=== PATIENT | male | born 1970 | race Caucasian/White ===

== ENCOUNTER 2020-06-01 02:46 | Outpatient (CLI) | payer OTHER, SELFPAY ==
[2020-06-02 13:48] LABS: SARS-CoV-2 RNA PCR Negative
== END 2020-06-01 02:47 | disposition home or self-care (01) ==
LOC: ANHCOVIDDT 02:46
PROVIDERS: PCP Family Medicine; Visit Provider Internal Medicine Gastroenterology
DX: Z01.812 Encounter for preprocedural laboratory examination (principal); Z11.59 Encounter for screening for other viral diseases
CPT/HCPCS: 87635; C9803; U0003

== ENCOUNTER 2020-06-04 01:03 | Day surgery (SDC) | payer OTHER, SELFPAY ==
[2020-05-28 09:23] VITALS: BMI 41.8
[2020-06-04 07:58] VITALS: BP 129/71; PULSE 66; RESP 20; TEMP 36.4; O2SAT 98
[2020-06-04] MEDS: LACTATED RINGERS 1,000 ML 150 ML IV CONT (08:09)
--- NOTE | 2020-06-04 08:35 | WPDANESEPPF ---
Anes - Initial Pre Proc Eval Procedure: Operation Date: 06/04/20 09:00 Proposed Procedures p Screening Colonoscopy - Isaac Wallace MD Date/Time: 06/04/20 08:35 Surgeon: Isaac Wallace MD Pre Op Diagnosis: neoplasm screening Patient Data Age: 49 Gender: M Height: 5 ft 8 in Weight: 123.5 kg Last Vital Signs Temp 97.5 F L 06/04/20 07:58 Pulse 66 06/04/20 07:58 Resp 20 06/04/20 07:58 BP 129/71 06/04/20 07:58 Pulse Ox 98 06/04/20 07:58 Allergies Allergy/AdvReac Type Severity Reaction Status Date / Time amoxicillin Allergy Intermediate Rash Verified 06/04/20 07:57 Home Medications Medication Instructions Recorded Confirmed Type No Home Medications 05/28/20 06/04/20 History Patient hx anesthesia problems: none Family hx anesthesia problems: none PMFSH Past Medical History Medical History (Updated 06/04/20 @ 08:35 by Jean-Paul John MD) Leukemia in remission no treatment at present Family History Family History (Updated 05/03/19 @ 13:48 by DOCTOR UNKNOWN) Father Diabetes mellitus Grandparent Family history of cardiovascular disease Family history of Alzheimer's disease Social History Social History Smoking status: Never smoker Gender identity (if verbalized by the patient): Male Sexual Orientation (if Verbalized by the Patient): Straight or Heterosexual Anes - Eval Final PreProcedure Day of Procedure 06/04/20 08:35 Patient weight: morbidly obese Heart: regular rate and rhythm Lungs: clear to auscultation Airway: Mallampati scale class II Neurological: alert and oriented Last oral intake: >/= 8 hours ASA classification: III Emergent: no Anesthetic plan: proceed Anesthesia type and monitoring: general GIVS and standard monitoring Informed Consent: The patient's anesthetic plan and its attendant risks and benefits were discussed with the patient/family/POA. Questions were solicited and answers provided to the satisfaction of the patient/family/POA.
--- NOTE | 2020-06-04 08:36 | WPDGICN ---
Assessment and Plan Assessment and plan (1) Colonoscopy planned: Status: Acute Assessment and Plan: Patient at average risk for colon polyps. Plan is for screening colonoscopy today. High-fiber diet advised. Further recommendations will be given after endoscopy. (2) Leukemia in remission: Code(s): C95.91 - Leukemia, unspecified, in remission Status: Acute Assessment and Plan: Patient has a history of CLL in remission. GI Consult Note Consult date/time: 06/04/20 08:36 HPI: Triston Schmidt is a 49 year old male Seen in evaluation at the request of Dr. Humza Simeon. patient presents for screening colonoscopy. His current weight appetite bowel movements are normal. He denies abdominal pain he has had no bleeding. His weight appetite bowel movements are normal. Family history noncontributory no known history of colon or rectal disease within the family. Past medical history of CLL currently felt to be stable on medications. Review of Systems Review of Systems: All systems reviewed & are unremarkable except as noted in HPI and below PMFSH Past Medical History Medical History Leukemia in remission no treatment at present Family History Family History Father Diabetes mellitus Grandparent Family history of cardiovascular disease Family history of Alzheimer's disease Social History Social History Smoking status: Never smoker Gender identity (if verbalized by the patient): Male Sexual Orientation (if Verbalized by the Patient): Straight or Heterosexual Meds Home Medications and Allergies Home Medications Medication Instructions Recorded Confirmed Type No Home Medications 05/28/20 06/04/20 History Allergies Allergy/AdvReac Type Severity Reaction Status Date / Time amoxicillin Allergy Intermediate Rash Verified 06/04/20 07:57 Vital Signs Vital Signs - 24 hr 06/04/20 07:58 Temperature 97.5 F L Pulse Rate 66 Respiratory Rate 20 Blood Pressure 129/71 Pulse Oximetry 98 Exam Narrative: Exam Narrative: Physical exam reveals patient to be alert. Vital signs stable. HEENT exam unremarkable. Lungs are clear to auscultation and percussion. Heart is without murmur or extra sounds. Abdominal exam bowel sounds are present soft nontender with no organomegaly. Digital external rectal exam normal.
[2020-06-04 09:35] VITALS: BP 108/62; PULSE 73; RESP 23; O2SAT 99
[2020-06-04 09:45] VITALS: BP 113/56; PULSE 63; RESP 29; O2SAT 98
[2020-06-04 09:55] VITALS: BP 115/72; PULSE 59; RESP 26; O2SAT 98
== END 2020-06-04 10:10 | disposition home or self-care (01) ==
PROVIDERS: PCP Family Medicine; Visit Provider Internal Medicine Gastroenterology
PROC: 0DJD8ZZ Inspection of Lower Intestinal Tract, Via Natural or Artificial Opening Endoscopic (ICD-10-PCS; CPT 45378; principal; 2020-06-04 09:00)
DX: Z12.11 Encounter for screening for malignant neoplasm of colon (principal); C95.91 Leukemia, unspecified, in remission; D17.5 Benign lipomatous neoplasm of intra-abdominal organs; K64.8 Other hemorrhoids; E66.01 Morbid (severe) obesity due to excess calories; Z68.41 Body mass index [BMI] 40.0-44.9, adult
CPT/HCPCS: 45378; 87635; C9803; J2704; J7120; U0003

== ENCOUNTER 2020-06-12 10:15 | Outpatient (CLI) | payer OTHER, SELFPAY ==
--- NOTE | 2020-06-16 09:28 | SLEEP_ITS ---
Home Sleep Test DATE OF STUDY: 06/12/2020 ORDERING PHYSICIAN: Dr. Humza Simeon. REASON FOR THIS STUDY: Hypersomnia, nonrestorative sleep. HISTORY: This patient is a 49-year-old male, 5 feet 3 inches tall, weighing 275 pounds with a body mass index of 48.6. He wakes up often while sleeping. He has difficulty falling asleep and he wakes up throughout the night. When he awakens in the morning, he is not refreshed. He frequently awakens from sleep feeling short of breath. He does not awaken from sleep with heartburn, belching, or coughing. He frequently snores and it is frequently loud enough that others complain about it. He occasionally has trouble sleeping if he has a cold. He occasionally wakes up gasping for breath at night. He frequently has breathing problems at night observed by others. He rarely sweats excessively at night. He does not notice his heart pounding or beating irregularly at night, does not fall asleep during the day, involuntarily or while driving. He does not fall asleep with physical effort. He does not have loss of muscle tone with strong emotion. He occasionally has daytime difficulties due to excessive sleepiness. 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 He does not have paralysis on waking or falling asleep. He occasionally has vivid dreamlike scenes upon awakening or falling asleep. He is never afraid to go to sleep and does not have nightmares. He occasionally remembers his dreams. He occasionally has racing thoughts, feelings of sadness, depression, and anxiety. He rarely has muscular tension. He does not notice parts of his body jerking at night and he does not kick at night. He occasionally has crawly achy feelings in his legs and experiences leg pain at night only rarely. He does not have morning jaw pain. He rarely grinds his teeth at night. He occasionally is bothered by pain during the day. He rarely is awakened by pain during the night, rarely feels stiff in the morning with sore achy muscles or pain in his neck and spine. Normal bedtime is 11 p.m., falling asleep within 5 minutes, waking often, sometimes just for a few seconds, but sometimes he must wake up and go to the bathroom. He may stay awake for 30 minutes. He wakes in the morning at 6 o'clock. On weekends, he goes to bed at midnight and wakes at 9:30 a.m. On the weekends, he does get recovery sleep 9-10 hours. He does not take naps in general. A short nap may be refreshing. Most of the time he feels adequate in the morning, but he feels better in the evening than other times of day. MEDICAL COMORBIDITIES: 1. Chronic lymphocytic leukemia, B-cell type. No treatment currently. 2. Erectile dysfunction. MEDICATIONS: Sildenafil citrate 100 mg p.r.n. sexual activity. HABITS: Never smoked tobacco. Caffeine, 2 L or more of soda daily. Alcohol, 1 beverage 4-5 days per week. No recreational drugs. DESCRIPTION OF THE STUDY: On the [place] Sleepiness Scale, the score is 8. This was conducted as an unattended type 3 portable home sleep test using 4 channel monitoring with respiratory effort channel, snoring channel, oxygen saturation channel, and heart rate channel. This study was scored using [facility] guidelines. Apnea-hypopnea index is 72. Oxygen desaturation index is 70. Average saturation is 88%. Lowest saturation 72%. There were 120 apneas and 98% of these, 118 apneas were obstructive, 1 apnea was unclassified and 1 apnea was central. He had 380 hypopneas. He had 1990 snoring events and desaturated 492 times. He spent 208 minutes below 88%, 49% of the study. Heart rate ranged from 51 to 97, normal. IMPRESSION: 1. This home sleep test shows evidence of extremely severe obstructive sleep apnea syndrome at G47.33 with an AHI of 72, si
== END 2020-06-12 10:16 | disposition home or self-care (01) ==
LOC: ANHCSM 10:15
PROVIDERS: PCP Family Medicine; Visit Provider Family Medicine
DX: G47.33 Obstructive sleep apnea (adult) (pediatric) (principal)
CPT/HCPCS: 95806

== ENCOUNTER 2025-06-01 19:11 | Emergency (ER) | payer OTHER, SELFPAY ==
--- NOTE | 2025-06-01 19:18 | ED_ITS ---
HPI - Ear Problem General Chief complaint: Ear Stated complaint: Ears Irritation Time Seen by Provider: 06/01/25 19:18 Source: patient Mode of arrival: ambulatory Limitations: no limitations History of Present Illness HPI Narrative: Patient is a 54-year-old male presents with left ear pain for 2 days. Reports he now has swelling and blisters on the top of left ear. Patient has PCP appointment tomorrow but was unable to wait due to pain. No fevers or chills MD Complaint: ear pain Related Data Allergies Allergy/AdvReac Type Severity Reaction Status Date / Time amoxicillin Allergy Intermediate Rash Verified 06/01/25 19:26 Penicillins Allergy Mild rash Verified 06/01/25 19:26 Review of Systems Review of Systems: All systems reviewed & are unremarkable except as noted in HPI and below Constitutional: Constitutional: Denies body ache(s), Denies chills, Denies fever(s), Denies headache(s) and Denies malaise Eyes: Eyes: Denies blurry vision, Denies eye discharge and Denies irritation ENT: Reports otalgia, Denies headache(s), Denies nasal congestion, Denies nasal discharge and Denies sore throat Cardiovascular: Cardiovascular: Denies chest pain, Denies edema, Denies palpitations and Denies dyspnea on exertion Respiratory: Respiratory: Denies cough and Denies dyspnea on exertion Gastrointestinal: Gastrointestinal: Denies abdominal pain, Denies diarrhea, Denies nausea and Denies vomiting Musculoskeletal: Musculoskeletal: Denies back pain, Denies arthralgias and Denies muscle weakness Integumentary/Breasts: Skin/Breast: Denies pruritus and Denies rash Neurologic: Denies headache(s) Psychiatric: Psychiatric: Reports no additional psychiatric complaints Endocrine: Endocrine: Denies palpitations PMFSH Past Medical History Medical History Elevated blood pressure reading without diagnosis of hypertension Abnormal fasting glucose Dyslipidemia Morbid obesity Obstructive sleep apnea (adult) (pediatric) Abnormal liver function tests Chronic lymphocytic leukemia of B-cell type in remission Family History Family History Father Diabetes mellitus Cerebrovascular accident Grandparent Family history of cardiovascular disease Family history of Alzheimer's disease Social History Social History Social History: 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 Smoking status: Never smoker Alcohol intake: current Substance use: never Substance use type: does not use Current Housing: Decline to Answer Concerned About Future Housing: Decline to Answer Difficulty Paying Gas/Electric Bills: Decline to Answer Difficulty Paying for Meds: Decline to Answer Currently Unemployed: Decline to Answer Education: Decline to Answer Difficulty w/ Childcare or Family Care: Decline to Answer Living arrangements: with family Gender identity (if verbalized by the patient): Male Sexual Orientation (if Verbalized by the Patient): Straight or Heterosexual Comments At time of signature, agree with nursing past medical, surgical, social and family history. There is no relevant family history pertinent to the presenting complaint? Exam Const: General: cooperative, healthy appearing, no acute distress and well nourished Nutritional Appearance: well nourished Orientation/consciousness: patient oriented x3 Limitations: no limitations HENMT: Head: normal to inspection, normocephalic and atraumatic Ears: hearing grossly normal bilaterally, TM's normal bilaterally, no periauricular adenopathy, Abnormal EAC present edema on the left and otic discharge purulent on the left and external ear abnormal (edema) auricular tenderness on the left and pain with movement of external ear on the left Face/Nose/Sinus: Normal external nose present, Normal nares present, Normal nasal mucous membranes and turbinates present, No nasal discharge present, normal facial exam and sinuses nontender Face and sinus: normal facial exam and sinuses nontender Mouth: Yes Normal oral and palatal mucosa present, Yes lip normal, Yes tongue normal an d Yes moist mucous membranes Throat: posterior oropharynx normal, tonsils normal and uvula midline Eyes: General: appearance normal, both eyes and all related structures Alignment and Position: alignment normal and position normal Eyelids: eyelids normal Pupils: Equal, round and reactive pupils present EOM: EOMs intact bilaterally Neck: Neck: normal visual inspection, full ROM, no lymphadenopathy and supple Chest: Chest palpation & inspection: normal inspection of the chest Resp: Effort & Inspection: normal respiratory effort and able to speak in complete sentences Auscultation: clear to auscultation bilaterally, no crackles, no rales, no rhonchi and no wheezes Cardio: Rate: regular rate Rhythm: regular rhythm Heart sounds: S1 normal heart sound present and S2 normal heart sound present Skin: General skin exam: normal color and no rashes or lesions noted Neuro: General: patient oriented x3 and moves all extremities Cranial nerves: Yes Equal, round and reactive pupils present Cognition (Neuro): normal cognition Speech: normal speech Gait exam (Neuro): Normal gait present Extrem: General: normal to inspection and full ROM Psych: Appearance: grossly normal and well kempt Mental Status: mental status grossly normal Speech and movement: Normal speech and movement present Course Course Emergency Course: Patient is aware of diagnosis, understands and agrees to treatment plan.? Anticipatory guidance given.? Patient agrees to follow-up as directed and is aware of reasons to seek care at the emergency department.? Portions of this record may have been created with voice recognition software? Level of Care: Express Care Visit Vital Signs Vital signs: Reviewed Medical Decision Making MDM Narrative Medical decision making narrative: As infection has extended past the ear canal on to external ear will treat with oral antibiotics versus antibiotic ear drops Pt well hydrated appearing, in no respiratory distress, hemodynamically stable. Recommend supportive care. The patient is stable at time of discharge the clinical impression was discussed and the patient was given the opportunity to ask questions, which were addressed as completely as possible given the information available at present. Anticipatory guidance and return to care precautions were discussed and the importance of primary care follow-up was stressed and encouraged. The patient voiced understanding of the plan, indications to return, and the need for follow-up. Exam findings show no acute concerns or changes Patient is appropriate for outpatient treatment and follow-up. Differential diagnosis considered: otitis media, otitis externa, otitis effus ion, foreign body, cerumen impaction, viral syndrome Medical Records Medical records reviewed: Yes I reviewed the external patient's medical records. Discharge Plan Discharge Clinical Impression: Otitis externa Qualifiers: Otitis externa type: unspecified type Chronicity: acute Laterality: right Qualified Code(s): H60.501 - Unspecified acute noninfective otitis externa, right ear Patient Disposition: Home Condition: Stable Instructions: Swimmer's Ear (GEN) Additional Instructions: Take antibiotics as directed. Recommend antihistamine such as Benadryl at night time and Zyrtec or Yisel during the day until symptoms improve Flonase nasal spray, 1 spray in each nostril once daily until symptoms improve Also, recommend symptomatic treatment includes: rest, fluids, and increase humidity of the air at home. Recommend Acetaminophen as directed on the bottle to reduce fever, pain Please schedule a follow-up visit with your personal physician for further evaluation and treatment within 3-5days. If your symptoms persist, change or worsen significantly before you can contact your personal physician then please, without delay, go to the emergency department for further evaluation. Your blood pressure was elevated above 120/80 today at Urgent Care. This puts you above the threshold for follow up visit with a primary care provider. High blood pressure does not usually cause any symptoms, however it may lead to kidney failure, stroke, heart disease just to name a few if untreated . Many people are anxious when seeing a provider or nurse. As a result, you are not diagnosed with hypertension at this time unless your blood pressure is persistently high at two office visits at least one week apart. Some things that can help lower blood pressure are lifestyle modifications, such as light exercise, decreased salt in diet, and weight loss. It is important to follow up with a PCP about this within 1 week. Patient Language: Yi Prescriptions: New ciprofloxacin HCl 500 mg tablet 500 mg PO Q12H 7 Days Qty: 14 0RF Follow-up/Referrals: Humza Simeon MD [Primary Care Provider] - 3 Days Time of Disposition: 19:29
[2025-06-01 19:20] VITALS: BP 147/61; PULSE 59; RESP 16; TEMP 36.6; O2SAT 97
== END 2025-06-01 19:34 | disposition home or self-care (01) ==
PROVIDERS: Emergency Provider Nurse Practitioner Family; PCP Family Medicine
DX: H60.501 Unspecified acute noninfective otitis externa, right ear (principal); E78.5 Hyperlipidemia, unspecified; E66.01 Morbid (severe) obesity due to excess calories; Z68.41 Body mass index [BMI] 40.0-44.9, adult; C91.11 Chronic lymphocytic leukemia of B-cell type in remission
CPT/HCPCS: 99213; G0463

== ENCOUNTER 2025-09-09 13:36 | Emergency (ER) | payer OTHER, SELFPAY ==
[2025-09-09 13:42] VITALS: BP 132/56; PULSE 67; RESP 16; TEMP 36.8; O2SAT 96
--- NOTE | 2025-09-09 14:03 | ED.URI ---
HPI - URI/Sore Throat General Chief Complaint: Upper Respiratory Infection Stated Complaint: left ear pain/cough Patient presents the Express Care with complaints nasal congestion, headaches, pain and drainage from left ear that began over the last few days. Patient notes occasional ear infections in the left ear only, noted he was treated just a few months ago in this office for a infection. Denies fever, chills, body aches, dizziness, sore throat, nausea, vomiting, diarrhea. Related Data Allergies Allergy/AdvReac Type Severity Reaction Status Date / Time amoxicillin Allergy Intermediate Rash Verified 09/09/25 13:39 Penicillins Allergy Mild rash Verified 09/09/25 13:39 Review of Systems Constitutional: Constitutional: Reports as per HPI, Denies chills, Denies fatigue, Denies fever(s) and Denies weakness Eyes: Eyes: Reports no additional eye complaints ENT: Reports as per HPI, Denies vertigo, Denies dizziness, Reports nasal congestion and Denies sore throat Comments: Left ear pain with drainage Cardiovascular: Cardiovascular: Reports no additional cardiovascular complaints Respiratory: Respiratory: Reports as per HPI, Denies chest congestion, Denies cough, Denies dyspnea and Denies wheezing Gastrointestinal: Gastrointestinal: Reports no additional gastrointestinal complaints Genitourinary: Genitourinary: Reports no additional male genitourinary complaints Musculoskeletal: Musculoskeletal: Reports no additional musculoskeletal complaints Integumentary/Breasts: Skin/Breast: Reports as per HPI, Denies erythema and Denies rash Neurologic: Reports as per HPI, Denies vertigo, Denies dizziness, Reports headache(s) and Denies weakness Psychiatric: Psychiatric: Reports no additional psychiatric complaints Endocrine: Endocrine: Reports no additional endocrine complaints Hematologic/Lymphatic: Hematologic/Lymphatic: Reports no additional hematologic/lymphatic complaints Allergic/Immunologic: Allergic/Immunologic: Reports no additional allergic/immunologic complaints [facility] Past Medical History Medical History Elevated blood pressure reading without diagnosis of hypertension Abnormal fasting glucose Dyslipidemia Morbid obesity Obstructive sleep apnea (adult) (pediatric) Abnormal liver function tests Chronic lymphocytic leukemia of B-cell type in remission Family History Family History Father Diabetes mellitus Cerebrovascular accident Grandparent Family history of cardiovascular disease Family history of Alzheimer's disease Social History Social History Social History: 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 Smoking status: Never smoker Alcohol intake: current Substance use: never Substance use type: does not use Current Housing: Decline to Answer Concerned About Future Housing: Decline to Answer Difficulty Paying Gas/Electric Bills: Decline to Answer Difficulty Paying for Meds: Decline to Answer Currently Unemployed: Decline to Answer Education: Decline to Answer Difficulty w/ Childcare or Family Care: Decline to Answer Living arrangements: with family Gender identity (if verbalized by the patient): Male Sexual Orientation (if Verbalized by the Patient): Straight or Heterosexual Exam Const: General: healthy appearing and no acute distress Nutritional Appearance: well nourished Orientation/consciousness: patient oriented x3 Limitations: no limitations HENMT: Head: normal to inspection Ears: external ears normal and TM's abnormal bilaterally Face/Nose/Sinus: Normal external nose present and Normal nares present Face and sinus: normal facial exam and sinuses nontender Mouth: Yes Normal oral and palatal mucosa present, Yes lip normal and Yes moist mucous membranes Throat: posterior oropharynx normal Other: right TM dullness no erythema or fluid noted. left TM retracted with significant dullness, erythema, loss of bony landmarks, and minimal rupture at 4 o'clock. Neck: Neck: normal visual inspection and no lymphadenopathy Resp: Effort & Inspection: normal respiratory effort Auscultation: clear to auscultation bilaterally Cardio: Rate: regular rate Rhythm: regular rhythm Skin: General skin exam: normal color Rashes: no rashes Wounds: no wounds Neuro: General: patient oriented x3 Speech: normal speech Gait exam (Neuro): Normal gait present Psych: Mental Status: mental status grossly normal Affect: normal affect Attitude: cooperative Course Course Level of Care: Express Care Visit Vital Signs Vital signs: Vital Signs Temperature 98.2 F 09/09/25 13:42 Pulse Rate 67 09/09/25 13:42 Respiratory Rate 16 09/09/25 13:42 Blood Pressure 132/56 L 09/09/25 13:42 Pulse Oximetry 96 09/09/25 13:42 Oxygen Delivery Room Air 09/09/25 13:42 Temperature 98.2 F 09/09/25 13:42 Pulse Rate 67 09/09/25 13:42 Respiratory Rate 16 09/09/25 13:42 Blood Pressure 132/56 L 09/09/25 13:42 Pulse Oximetry 96 09/09/25 13:42 Oxygen Delivery Room Air 09/09/25 13:42 MDM - URI/Sore Throat MDM Narrative Medical decision making narrative: AOM with rupture noted The patient was evaluated by myself in the express care. History is obtained from patient who is an independent historian and physical exam was performed. Available medical records were reviewed at this time. Exam findings show no acute concerns or changes; patient is non-toxic appearing and is in no distress. Patient is appropriate for outpatient treatment and follow-up. I have evaluated and discussed social determinants of health with the patient that could potentially impact subsequent diagnosis and treatment plans. Differential diagnosis and treatment plan were discussed with the patient. Patient agrees with discussion and after shared medical decision making agrees with plan of care. All questions were answered to the patient's satisfaction. Differential Diagnosis Differential diagnosis: Likely upper respiratory infection, croup, otitis media, sinusitis, bronchitis, influenza and pharyngitis Medical Records Attestation: I reviewed the patient's medical records. Discharge Plan Discharge Clinical Impression: Left otitis media with spontaneous rupture of eardrum Patient Disposition: Home Condition: Stable Instructions: Antibiotic Form, Ruptured Eardrum (ED), Ear Infection (GEN) Additional Instructions: take the antibiotics until gone. May use probiotics or yogurt daily to help with upset stomach /diarrhea with antibiotic use. May use Tylenol and ibuprofen to help with pain or fever. May use warm compresses to the outside of the ear to help with pain. Can also use Sudafed and Flonase nasal spray to help with symptoms associated with ear infection and help the ears drain. Follow-up with primary care physician if symptoms not improving or worsen. Patient Language: Mosotho Prescriptions: New azithromycin 250 mg tablet See Rx Instructions .ROUTE .COMPLEX Qty: 6 0RF Rx Instructions: For 250 mg dose pack: take 500 mg today (day 1), then 250 mg for 4 days (days 2-5) ofloxacin 0.3 % drops 10 drp LEFT EAR DAILY 7 Days Qty: 10 0RF Follow-up/Referrals: Palomo Baldwin MD [Physician, Ear, Nose, Throat] Humza Simeon MD [Primary Care Provider, Family Practice] Time of Disposition: 14:11
== END 2025-09-09 14:15 | disposition home or self-care (01) ==
PROVIDERS: Emergency Provider Nurse Practitioner Family; PCP Family Medicine
DX: H66.92 Otitis media, unspecified, left ear (principal); H72.92 Unspecified perforation of tympanic membrane, left ear
CPT/HCPCS: 99213; G0463